=== PATIENT | male | born 1985 | race Two or more races ===

== ENCOUNTER 2018-08-16 22:32 | Emergency (ER) | payer OTHER ==
[~2018-08-16] VITALS: Ht 162.6 cm; Wt 77.1 kg
[2018-08-16 22:44] VITALS: BP 125/76
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
[2018-08-16] MEDS ORDERED: HYDROcodone/Acetamin 5/325 tab ORAL ONE (23:00)
[2018-08-16] MEDS ORDERED: SILVADENE20 GM TP (23:29)
[2018-08-16] MEDS ORDERED: IBUPROFEN600 MG ORAL (23:29)
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
[2018-08-16 23:45] VITALS: BP 125/76
--- NOTE | 2018-08-16 23:45 | NUR ---
Note cristina in EDM - 08/16/18 at 2346 by LCRISOSTOM ER DISCHARGE NOTE: Patient is cleared to be discharged per ERMD, pt is aox4, on room air, with stable vital signs. pt was given dc and prescription instructions, pt was able to verbalize understanding, pt id band and iv site removed without complications. pt is able to ambulate with steady gait. pt took all belongings.
--- NOTE | 2018-08-16 23:45 | NUR ---
ER DISCHARGE NOTE: Patient is cleared to be discharged per ERMD, pt is aox4, on room air, with stable vital signs. pt was given dc and prescription instructions, pt was able to verbalize understanding, pt id band removed. pt is able to ambulate with steady gait. pt took all belongings.
== END 2018-08-16 23:45 | disposition home or self-care (01) ==
LOC: EMR 23:10
DX: T22.20XA Burn of second degree of shoulder and upper limb, except wrist and hand, unspecified site, initial encounter (principal); X08.8XXA Exposure to other specified smoke, fire and flames, initial encounter; Y93.9 Activity, unspecified; Y92.511 Restaurant or cafe as the place of occurrence of the external cause; Y99.0 Civilian activity done for income or pay
CPT/HCPCS: 99283